=== PATIENT | male | born 1985 | race African-American/Black ===

== ENCOUNTER 2022-01-27 09:34 | Emergency (ER) | payer OTHER ==
[2022-01-27 09:34] VITALS: BP 155/77
[2022-01-27] MEDS ORDERED: MOTRIN PO STA (09:55)
[2022-01-27] MEDS ORDERED: TYLENOL #3 PO ONE ×2 (10:00→10:39)
[2022-01-27] MEDS ORDERED: NORCO 10MG PO ONE (10:15)
[2022-01-27] MEDS ORDERED: MOTRIN ONE (10:15)
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
[2022-01-27] MEDS ORDERED: LIDOCAINE 1% VIAL ONE (11:16)
[2022-01-27] MEDS ORDERED: BOOSTRIX IM ONE ×2 (11:30→11:35)
[2022-01-27] MEDS ORDERED: KEFLEX PO ONE (15:00)
== END 2022-01-27 11:51 | disposition home or self-care (01) ==
LOC: ER 09:34
DX: S61.422A Laceration with foreign body of left hand, initial encounter (principal); S40.012A Contusion of left shoulder, initial encounter; S60.222A Contusion of left hand, initial encounter; V69.40XA Driver of heavy transport vehicle injured in collision with unspecified motor vehicles in traffic accident, initial encounter; Y93.I9 Activity, other involving external motion; Y92.410 Unspecified street and highway as the place of occurrence of the external cause; Y99.8 Other external cause status
CPT/HCPCS: 99284; 90471; 90715; 73130; 73030; 12001; J2001; J3490; 12041